=== PATIENT | male | born 1965 ===

== ENCOUNTER 2017-05-18 17:43 | Emergency (ER) | payer OTHER ==
[2017-05-18 17:50] VITALS: BP 117/77; PULSE 68; RESP 20; TEMP 97.8; O2SAT 97
--- NOTE | 2017-05-18 18:41 | C.PDOC ---
History Of Present Illness 52 y/o M p/w wound check. Here 2 days ago for abscess that was drained. Denies fever, pain. Not on antibiotics. Chief Complaint (Nursing): Wound Check Past Medical History Vital Signs: Last Vital Signs Temp 97.8 F 05/18/17 17:47 Pulse 68 05/18/17 17:47 Resp 20 05/18/17 17:47 BP 117/77 05/18/17 17:47 Pulse Ox 97 05/19/17 07:40 Family History: States: No Known Family Hx - Social History Hx Alcohol Use: No Hx Substance Use: No - Immunization History Hx Tetanus Toxoid Vaccination: Yes (2016) Hx Influenza Vaccination: No Hx Pneumococcal Vaccination: No Review Of Systems Except As Marked, All Systems Reviewed And Found Negative. Constitutional: Negative for: Fever Respiratory: Negative for: Shortness of Breath Physical Exam - Physical Exam Additional Physical Exam Comments: Gen: NAD Skin: Incision on R upper back, packing removed, no further drainage. Minimal erythema surrounding incision, minimally tender. ED Course And Treatment O2 Sat by Pulse Oximetry: 97 Medical Decision Making Medical Decision Making: Patient states he will follow up with PMD in 2 more days for another wound check. Instructed to return to ED for fever or worsening pain or discharge. Disposition - Disposition Disposition: HOME/ ROUTINE Disposition Time: 18:40 Condition: STABLE Instructions: Abscess (ED) Forms: [facility] (Italian) - Clinical Impression Clinical Impression: Visit for wound check
== END 2017-05-18 21:24 | disposition home or self-care (01) ==
LOC: C.ER 17:43
DX: Z48.00 Encounter for change or removal of nonsurgical wound dressing (principal)

== ENCOUNTER 2017-10-11 17:59 | Emergency (ER) | payer SELFPAY ==
[2017-10-11 18:20] VITALS: BMI 22.5
[2017-10-11 18:23] VITALS: BP 119/78; PULSE 75; RESP 18; TEMP 98.8; O2SAT 99
--- NOTE | 2017-10-11 19:23 | C.PDOC ---
History Of Present Illness 52-year-old male, presents to the emergency department with complaints of right lower back pain that radiates to right lower leg x1 week, after he bent over to pick something up. Patient admits to similar symptoms in past and has a Hx of sciatica. He denies any direct trauma, injuries, fever, chills, sore throat, abd. pain, N/V/D, UTI sx, saddle anesthesia, incontinence, denies deformity, weakness, sensory or vascular deficits to B?L lEs. Ambulate to Ed for evaluation , not in any apparent distress. Time Seen by Provider: 10/11/17 18:49 Chief Complaint (Nursing): Back Pain History Per: Patient Past Medical History Reviewed: Historical Data, Nursing Documentation, Vital Signs Vital Signs: Last Vital Signs Temp 98.8 F 10/11/17 18:20 Pulse 75 10/11/17 18:20 Resp 18 10/11/17 18:20 BP 119/78 10/11/17 18:20 Pulse Ox 99 10/11/17 20:12 - Medical History PMH: No Chronic Diseases Family History: States: No Known Family Hx - Social History Hx Alcohol Use: No Hx Substance Use: No - Immunization History Hx Tetanus Toxoid Vaccination: Yes (2017) Hx Influenza Vaccination: No Hx Pneumococcal Vaccination: No Review Of Systems Except As Marked, All Systems Reviewed And Found Negative. Constitutional: Negative for: Fever, Chills ENT: Negative for: Throat Pain Cardiovascular: Negative for: Chest Pain Respiratory: Negative for: Cough, Shortness of Breath, Wheezing Gastrointestinal: Negative for: Nausea, Vomiting, Abdominal Pain Genitourinary: Negative for: Dysuria, Frequency, Incontinence Musculoskeletal: Positive for: Back Pain. Negative for: Neck Pain Skin: Negative for: Rash Neurological: Negative for: Weakness, Numbness Physical Exam - Physical Exam Appears: Well, Non-toxic, No Acute Distress Skin: Normal Color, Warm, Dry, No Rash Head: Normacephalic Eye(s): bilateral: PERRL Nose: No Flaring, No Discharge Oral Mucosa: Moist, No Drooling Throat: No Drooling Neck: Supple Cardiovascular: Rhythm Regular Respiratory: No Decreased Breath Sounds, No Accessory Muscle Use, No Stridor, No Wheezing Gastrointestinal/Abdominal: Soft, No Tenderness, No Distention, No Guarding Back: No CVA Tenderness, No Vertebral Tenderness, Paraspinal Tenderness (Right sided lumbar with mod muscle spasm.) Extremity: Normal ROM, No Pedal Edema, No Deformity, No Swelling Neurological/Psych: Oriented x3, Normal Speech, Normal Motor, Normal Sensation, Normal Reflexes ED Course And Treatment O2 Sat by Pulse Oximetry: 99 Pulse Ox Interpretation: Normal Progress Note: On re-evaluation, pt is afebrile, hemodynamicaly stable. Non- toxic. Ambulatory in ED with stable gait. ENT: no acute findings. neck: Supple, (-) JVD, (-) carotid bruits B/L. Lungs: CTA B/L, BS equal B/L. CVS: (+ )S1S2, reg. Abd: benign. Back: (-) CVA tenderness. Neuorlogicaly intact. Pt has clinical findings c/w lumbar radiculopathy. Advised. ref. to f/u with PMD in2 -3 days for re-eavl. return if any new changes. Disposition Counseled Patient/Family Regarding: Diagnosis, Need For Followup, Rx Given - Disposition Referrals: [facility] [Outside] Disposition: HOME/ ROUTINE Disposition Time: 19:22 Condition: STABLE Prescriptions: Ibuprofen [Motrin Tab] 600 mg PO Q6 #20 tab Methocarbamol [Robaxin] 500 mg PO TID #14 tab traMADol [Ultram] 50 mg PO TID #7 tab Instructions: Lumbar Radiculopathy (ED) Forms: [employer] (Russian) - Clinical Impression Clinical Impression: Sciatica
== END 2017-10-11 20:18 | disposition home or self-care (01) ==
LOC: C.ER 17:59
DX: M54.30 Sciatica, unspecified side (principal)